=== PATIENT | female | born 1980 | race Caucasian/White ===

== ENCOUNTER 2017-02-07 08:09 | Emergency (ER) | payer SELFPAY ==
[2017-02-07] MEDS ORDERED: ASPIRIN 81 MG TABLET, CHEWABLE PO ONE (09:36)
[2017-02-07] MEDS ORDERED: NITROGLYCERIN 0.4 MG/TAB 25 TAB/BOTTLE SL PRN (09:36)
--- NOTE | 2017-02-07 09:46 | ER Document Report ---
ED General - General Mode of Arrival: Ambulatory Information source: Patient TRAVEL OUTSIDE OF THE [place] IN LAST 30 DAYS: No - General Chief Complaint: Facial Droop Stated Complaint: FACIAL NUMBNESS Time Seen by Provider: 02/07/17 08:50 Notes: Patient is a 36-year-old female that presents to the emergency department today with complaints of a right-sided facial droop and associated right eye pain. Patient states she has had these symptoms continuously for approximately 3 days. Patient states her right eye feels dry because she has not been blinking like she normally would. Patient denies any numbness/weakness in her upper or lower extremities. (MELYSSA OLIVAS) - Related Data Allergies/Adverse Reactions: No Known Allergies Allergy (Verified 02/07/17 08:10) Past Medical History - General Information source: Patient - Social History Smoking Status: Never Smoker Cigarette use (# per day): No Frequency of alcohol use: None Drug Abuse: None Lives with: Family Family History: Reviewed & Not Pertinent Neurological Medical History: Reports: Hx Migraine Traumatic Medical History: Reports: Hx Fractures Past Surgical History: Reports: Hx Hysterectomy - Immunizations Immunizations up to date: Yes - 06/17/12 Hx Diphtheria, Pertussis, Tetanus Vaccination: Yes Review of Systems - Review of Systems Constitutional: No symptoms reported EENT: See HPI, Other - right eye pain Cardiovascular: No symptoms reported Respiratory: No symptoms reported Gastrointestinal: No symptoms reported Genitourinary: No symptoms reported Female Genitourinary: No symptoms reported Musculoskeletal: No symptoms reported Skin: No symptoms reported Hematologic/Lymphatic: No symptoms reported Neurological/Psychological: See HPI, Other - right sided facial droop -: Yes All other systems reviewed and negative Physical Exam - Vital signs Vitals: Temp Pulse Resp BP Pulse Ox 98.0 F 106 H 14 144/89 H 97 02/07/17 08:16 02/07/17 08:16 02/07/17 08:16 02/07/17 08:16 02/07/17 08:16 - Notes Notes: Physical Exam: General: Alert, appears well. HEENT: Normocephalic. Atraumatic. PERRL. Extraocular movements intact. Oropharynx clear. Unable to raise right eyebrow, unable to wrinkle forehead on right, decreased sensation to right side of face. Neck: Supple. Non-tender. Respiratory: No respiratory distress. Clear and equal breath sounds bilaterally. Cardiovascular: Regular rate and rhythm. Abdominal: Normal Inspection. Non-tender. No distension. Normal Bowel Sounds. Back: Non-tender. No deformity or step off. Extremities: Moves all four extremities. Upper extremities: Normal inspection. Normal ROM. Lower extremities: Normal inspection. No edema. Normal ROM. Neurological: Cranial nerves II-XII intact with the exception of cranial nerve XII as described above. AAOx4. Normal speech. Psychological: Normal affect. Normal Mood. Skin: Warm. Dry. Normal color. (MELYSSA OLIVAS) Course - Re-evaluation Re-evalutation: 02/07/17 Patient presents with what appears to be Walker's palsy. She has had the symptoms for 48 hours. Patient will be given steroids and antivirals. She is to return if she has any worsening or concerning symptoms. Stable for discharge. Up with PMD as needed. Patient is to get eyepatch her pharmacy to wear to protect her eye. She is also to get lubricating eyedrops. Understands agrees with plan. (VANNESA HAWLEY) - Vital Signs Vital signs: Temp Pulse Resp BP Pulse Ox 98.0 F 99 18 124/73 98 02/07/17 12:20 02/07/17 12:20 02/07/17 12:20 02/07/17 12:20 02/07/17 12:20 Discharge - Discharge Clinical Impression: Walker's palsy Condition: Stable Disposition: HOME, SELF-CARE Instructions: Walker's Palsy ([facility]) Additional Instructions: Please get lubricating eyedrops and an eye patch from the pharmacy to protect your eye at night. Prescriptions: Acyclovir [Zovirax] 400 mg PO TID #42 capsule Prednisone [Deltasone 20 mg Tablet] 3 tab PO DAILY 4 Days tablet Scribe Attestation: 02/07/17 16:18 I personally performed the services described in the documentation, reviewed and edited the documentation which was dictated to the scribe in my presence, and it accurately records my words and actions. (VANNESA HAWLEY) Scribe Documentation - Scribe Written by Scrjonnye:: Farhan Nayak, 02/07/2017 1104 acting as scribe for :: Shy
[2017-02-07] MEDS ORDERED: PREDNISONE 20 MG TABLET PO ONE (09:47)
[2017-02-07] MEDS ORDERED: VALACYCLOVIR HCL 500 MG TABLET PO ONE (09:47)
[2017-02-07 12:23] VITALS: BP 124/73
== END 2017-02-07 12:25 | disposition home or self-care (01) ==
LOC: ER 08:09
DX: G51.0 Bell's palsy (principal); H57.11 Ocular pain, right eye
CPT/HCPCS: 99284; J7512

== ENCOUNTER 2017-03-03 18:27 | Emergency (ER) | payer SELFPAY ==
[2017-03-03] MEDS ORDERED: NORMAL SALINE 1000 ML 1,000 ML IV ONE (20:53)
[2017-03-03] MEDS ORDERED: ONDANSETRON HCL INJ/PF 4 MG/2 ML SDV IV ONE (20:54)
--- NOTE | 2017-03-03 20:55 | ER Document Report ---
ED General - General Chief Complaint: Dizziness Stated Complaint: DIZZINESS Time Seen by Provider: 03/03/17 20:38 Notes: Patient is a 36-year-old female without past medical history who presents with 2 days of nausea, vomiting and 1 day of lightheadedness. Patient states that each time she tries to change position from lying to sitting or sitting to standing position she becomes very lightheaded and feels like she is about to pass out. She notes that she is also been quite nauseated which has prompted her to have very minimal oral intake over the last several days. She has had one episode of nonbilious vomiting. Nothing seems to improve or worsen her nausea. She denies any abdominal pain, chest pain, shortness of breath, headache, neck pain, fever, or diarrhea. She has not seen a primary care doctor regarding today's concerns. Her only past surgical history is a total hysterectomy. TRAVEL OUTSIDE OF THE [place] IN LAST 30 DAYS: No - Related Data Allergies/Adverse Reactions: No Known Allergies Allergy (Verified 03/03/17 18:33) Past Medical History - General Information source: Patient - Social History Smoking Status: Never Smoker Frequency of alcohol use: None Drug Abuse: None Lives with: Spouse/Significant other Family History: Reviewed & Not Pertinent Neurological Medical History: Reports: Hx Migraine Renal/ Medical History: Denies: Hx Peritoneal Dialysis Traumatic Medical History: Reports: Hx Fractures Past Surgical History: Reports: Hx Hysterectomy - Immunizations Immunizations up to date: Yes - 06/17/12 Hx Diphtheria, Pertussis, Tetanus Vaccination: Yes Review of Systems - Review of Systems Notes: Constitutional: Negative for fever. HENT: Negative for sore throat. Eyes: Negative for visual changes. Cardiovascular: Negative for chest pain. Respiratory: Negative for shortness of breath. Gastrointestinal: Positive for nausea and vomiting Genitourinary: Negative for dysuria. Musculoskeletal: Negative for back pain. Skin: Negative for rash. Neurological: Negative for headaches, weakness or numbness. 10 point ROS negative except as marked above and in HPI. Physical Exam - Vital signs Vitals: Temp Pulse Resp BP Pulse Ox 98.6 F 121 H 20 114/81 99 03/03/17 18:44 03/03/17 18:44 03/03/17 18:44 03/03/17 18:44 03/03/17 18:44 Interpretation: Tachycardic Notes: PHYSICAL EXAMINATION: GENERAL: Well-appearing, well-nourished and in no acute distress. HEAD: Atraumatic, normocephalic. EYES: Pupils equal round and reactive to light, extraocular movements intact, sclera anicteric, conjunctiva are normal. ENT: nares patent, oropharynx clear without exudates. Dry mucous membranes. NECK: Normal range of motion, supple without lymphadenopathy LUNGS: Breath sounds clear to auscultation bilaterally and equal. No wheezes rales or rhonchi. HEART: Regular tachycardia without murmurs ABDOMEN: Soft, nontender, normoactive bowel sounds. No guarding, no rebound. No masses appreciated. EXTREMITIES: Normal range of motion, no pitting or edema. No cyanosis. NEUROLOGICAL: No focal neurological deficits. Moves all extremities spontaneously and on command. PSYCH: Normal mood, normal affect. SKIN: Warm, Dry, normal turgor, no rashes or lesions noted. Course - Re-evaluation Re-evalutation: 03/03/17 20:54 Patient presents with 3 days of lightheadedness that is positional in nature as well as nausea. The patient is noted during my examination to have her heart rate increased from 80-120 when she goes from a lying to sitting position. This immediately prompts her symptoms of lightheadedness suggesting orthostasis. Patient also appears clinically dehydrated. She notes that since she became nauseated she has had very poor p.o. intake. She is vomited only once. She denies any localized abdominal pain. Abdominal exam is benign without any focal areas of tenderness. She is status post a hysterectomy making and possible. She denies any dysuria, flank pain which would suggest a pyelonephritis or cystitis. She denies any chest pain or shortness of breath to suggest a cardiac or respiratory pathology. Patient denies any distinct vertigo, weakness or numbness. A full neurologic assessment is unremarkable. Will obtain basic laboratories, provide IV hydration and reassess 03/03/17 22:25 Labs are unremarkable. Patient has had improvement of her orthostasis. At this time based on exam and history I do not suspect any acute life-threatening pathology including cerebellar infarction, acute CA, occult infection, and I have encouraged the patient to follow closely with her primary care physician. At this time will discharge with return precautions and follow-up recommendations. Verbal discharge instructions given a the bedside and opportunity for questions given. Medication warnings reviewed. Patient is in agreement with this plan and has verbalized understanding of return precautions and the need for primary care follow-up in the next 24-72 hours. - Vital Signs Vital signs: Temp Pulse Resp BP Pulse Ox 98.7 F 98 14 112/69 100 03/03/17 23:29 03/03/17 23:49 03/03/17 23:29 03/03/17 23:29 03/03/17 23:29 - Laboratory Result Diagrams: 03/03/17 20:43 03/03/17 21:20 Discharge - Discharge Clinical Impression: Orthostatic hypotension, Dehydration Nausea and vomiting Qualifiers: Vomiting type: unspecified Vomiting Intractability: non-intractable Qualified Code(s): R11.2 - Nausea with vomiting, unspecified Condition: Stable Disposition: HOME, SELF-CARE Additional Instructions: Your symptoms are likely related to dehydration as your heart rate was very high and became even higher when you would sit up. Please be sure to drink plenty of fluids at home. Use the nausea medicine with which you were sent home as needed for nausea. Return if you develop focal weakness, numbness, confusion, fever, severe headache, or any other symptoms that are worrisome to you.
[2017-03-03 20:57] LABS: ABSOLUTE EOSINOPHILS # (AUTO) 0.1 10^3/uL (0.0-0.6); ABSOLUTE LYMPHOCYTES (AUTO) 1.5 10^3/uL (0.5-4.7); ABSOLUTE MONOCYTES (AUTO) 0.6 10^3/uL (0.1-1.4); ABSOLUTE NEUT (AUTO) 3.2 10^3/uL (1.7-8.2); BASOPHILS % (AUTO) 0.8 % (0-2); EOSINOPHILS % (AUTO) 2.1 % (0-6); HEMATOCRIT 41.7 % (36.0-47.0); LYMPHOCYTES % (AUTO) 27.7 % (13-45); MEAN CORPUSCULAR HEMOGLOBIN 29.4 pg (27.0-33.4); MEAN CORPUSCULAR HGB CONC 33.6 g/dL (32.0-36.0); MEAN CORPUSCULAR VOLUME 88 fl (80-97); MONOCYTES % (AUTO) 11.1 % (3-13); PLATELET COUNT 234 10^3/uL (150-450); RED BLOOD COUNT 4.76 10^6/uL (3.72-5.28); RED CELL DISTRIBUTION WIDTH 13.2 % (11.5-14.0); SEGMENTED NEUTROPHILS % (AUTO) 58.3 % (42-78); TOTAL CELLS COUNTED % (AUTO) 100 %; WHITE BLOOD COUNT 5.4 10^3/uL (4.0-10.5)
[2017-03-03 22:08] LABS: ANION GAP 12 (5-19); BLOOD UREA NITROGEN 14 mg/dL (7-20); CALCIUM 9.7 mg/dL (8.4-10.2); CARBON DIOXIDE 25 mmol/L (22-30); CHLORIDE 104 mmol/L (98-107); GLUCOSE 98 mg/dL (75-110); POTASSIUM 4.3 mmol/L (3.6-5.0); SODIUM 140.7 mmol/L (137-145)
[2017-03-03] MEDS ORDERED: DIPHENHYDRAMINE HCL 50 MG/ML VIAL IV ONE (22:25)
[2017-03-03] MEDS ORDERED: PROCHLORPERAZINE EDISYLATE INJ 10 MG/2 ML VIAL IV ONE (22:25)
[2017-03-03] MEDS ORDERED: ONDANSETRON ODT 4 MG TAB (6 TAB/ER DISP) PO PRN (22:28)
[2017-03-03 23:48] VITALS: BP 112/69
== END 2017-03-03 23:53 | disposition home or self-care (01) ==
LOC: ER 18:27
DX: I95.1 Orthostatic hypotension (principal); E86.0 Dehydration; R11.2 Nausea with vomiting, unspecified; R42 Dizziness and giddiness; Z90.710 Acquired absence of both cervix and uterus
CPT/HCPCS: 99284; 96361; 96374; 96375; 36415; 84703; 85025; 80048; J1200; J0780; J2405; J7030

== ENCOUNTER 2017-03-16 12:02 | Emergency (ER) | payer SELFPAY ==
--- NOTE | 2017-03-16 12:51 | ER Document Report ---
ED General - General Chief Complaint: Facial Droop Stated Complaint: LEFT SIDE FACIAL NUMBNESS Time Seen by Provider: 03/16/17 12:17 Mode of Arrival: Ambulatory Information source: Patient Notes: 36-year-old female who had right facial paralysis approximately one half months ago presents now with left facial paralysis. Patient notes symptoms started last night, is unable to move her face. Patient notes her right-sided paralysis resolved after steroids and anti virals. Patient did not follow-up with neurology TRAVEL OUTSIDE OF THE [place] IN LAST 30 DAYS: No - HPI Onset: Yesterday Onset/Duration: Sudden Quality of pain: No pain Severity: Mild Pain Level: Denies Associated symptoms: Other Exacerbated by: Movement Relieved by: Denies Similar symptoms previously: Yes Recently seen / treated by doctor: Yes - Related Data Allergies/Adverse Reactions: No Known Allergies Allergy (Verified 03/16/17 12:04) Past Medical History - Social History Smoking Status: Never Smoker Cigarette use (# per day): No Chew tobacco use (# tins/day): No Smoking Education Provided: No Frequency of alcohol use: None Drug Abuse: None Family History: Reviewed & Not Pertinent Patient has suicidal ideation: No Patient has homicidal ideation: No Neurological Medical History: Reports: Hx Migraine Renal/ Medical History: Denies: Hx Peritoneal Dialysis Traumatic Medical History: Reports: Hx Fractures Past Surgical History: Reports: Hx Hysterectomy - Immunizations Immunizations up to date: Yes - 06/17/12 Hx Diphtheria, Pertussis, Tetanus Vaccination: Yes Review of Systems - Review of Systems Notes: REVIEW OF SYSTEMS: CONSTITUTIONAL : Denies fever, chills, or sweats. Denies recent illness. EENT: Denies eye, ear, throat, or mouth pain or symptoms. Denies nasal or sinus congestion or discharge. Denies throat, tongue, or mouth swelling or difficulty swallowing. CARDIOVASCULAR: Denies chest pain. Denies palpitations or racing or irregular heart beat. Denies ankle edema. RESPIRATORY: Denies cough, cold, or chest congestion. Denies shortness of breath, difficulty breathing, or wheezing. GASTROINTESTINAL: Denies abdominal pain or distention. Denies nausea, vomiting , or diarrhea. Denies blood in vomitus, stools, or per rectum. Denies black, tarry stools. Denies constipation. GENITOURINARY: Denies difficulty urinating, painful urination, burning, frequency, blood in urine, or discharge. FEMALE GENITOURINARY: Denies vaginal bleeding, heavy or abnormal periods, irregular periods. Denies vaginal discharge or odor. MUSCULOSKELETAL: Denies back or neck pain or stiffness. Denies joint pain or swelling. SKIN: Denies rash, lesions or sores. HEMATOLOGIC : Denies easy bruising or bleeding. LYMPHATIC: Denies swollen, enlarged glands. NEUROLOGICAL: Massive left facial paralysis PSYCHIATRIC: Denies anxiety or stress. Denies depression, suicidal ideation, or homicidal ideation. ALL OTHER SYSTEMS REVIEWED AND NEGATIVE. PHYSICAL EXAMINATION: GENERAL: Well-appearing, well-nourished and in no acute distress. HEAD: Atraumatic, normocephalic. EYES: Pupils equal round and reactive to light, extraocular movements intact, conjunctiva are normal. ENT: Nares patent, oropharynx clear without exudates. Moist mucous membranes. NECK: Normal range of motion, supple without lymphadenopathy LUNGS: Breath sounds clear to auscultation bilaterally and equal. No wheezes rales or rhonchi. HEART: Regular rate and rhythm without murmurs ABDOMEN: Soft, nontender, nondistended abdomen. No guarding, no rebound. No masses appreciated. Female : deferred Musculoskeletal: Normal range of motion, no pitting or edema. No cyanosis. NEUROLOGICAL: Patient is unable to move her forehead on the left unable to close her eye lid completely and is unable to smile PSYCH: Normal mood, normal affect. SKIN: Warm, Dry, normal turgor, no rashes or lesions noted. Dictation was performed using [employer] voice recognition software Physical Exam - Vital signs Vitals: Temp Pulse Resp BP Pulse Ox 99.2 F 84 18 132/82 H 99 03/16/17 12:08 03/16/17 12:08 03/16/17 12:08 03/16/17 12:08 03/16/17 12:08 Course - Re-evaluation Re-evalutation: 03/16/17 12:50 Patient denies any other neurological deficits however it is strange for her to have a right facial paralysis and now left-sided facial paralysis, therefore a CTA has been ordered, patient must be seen by neurology,. Lyme titer ordered 03/16/17 15:06 CTA head was negative, patient overall looks well, I will discharge the patient home as Walker's palsy again however she promises me that she will see a neurologist, After performing a Medical Screening Examination, I estimate there is LOW risk for ACUTE GLAUCOMA, TEMPORAL ARTERITIS, MENINGITIS, INCRANIAL HEMORRHAGE, or ISCHEMIC STROKE thus I consider the discharge disposition reasonable. I have reevaluated this patient multiple times and no significant life threatening changes are noted. The patient and I have discussed the diagnosis and risks, and we agree with discharging home with close follow-up with the understanding that symptoms and presentations can change. We also discussed returning to the Emergency Department immediately if new or worsening symptoms occur. We have discussed the symptoms which are most concerning (e.g., changing or worsening symptoms, new numbness or weakness, vomiting, fever) that necessitate immediate return. - Vital Signs Vital signs: Temp Pulse Resp BP Pulse Ox 99.2 F 84 18 132/82 H 99 03/16/17 12:08 03/16/17 12:08 03/16/17 12:08 03/16/17 12:08 03/16/17 12:08 - Diagnostic Test Radiology reviewed: Image reviewed, Reports reviewed Discharge - Discharge Clinical Impression: Walker's palsy Condition: Stable Disposition: HOME, SELF-CARE Instructions: Walker's Palsy ([facility]) Prescriptions: Acyclovir [Zovirax] 400 mg PO 5XD 10 Days tablet Prednisone [Deltasone 20 mg Tablet] 3 tab PO DAILY 7 Days tablet Referrals: GALE ORDONEZ MD [ACTIVE STAFF] - Follow up tomorrow
--- NOTE | 2017-03-16 15:03 | RADIOLOGY REPORT (SQ) ---
EXAM DESCRIPTION: CTA HEAD COMPLETED DATE/TIME: 03/16/2017 2:40 pm REASON FOR STUDY: bells palsy bilateral? COMPARISON: None. TECHNIQUE: Post IV contrast scanning, thin section axial imaging through the brain to evaluate the a rterial structures. Source and MIP images are saved and reviewed on PACS. Advanced 3D imaging as volume-rendering, MIPs, SSD performed? yes All CT scanners at this facility use dose modulation, iterative reconstruction, and/or weight based d osing when appropriate to reduce radiation dose to as low as reasonably achievable (ALARA). [facility]: Dose Right [facility]: CareDose [facility]: Dose Right [facility]: Teradose 4D [facility]: Pipefish CONTRAST TYPE AND DOSE: contrast/concentration: Isovue 370.00 mg/ml; Total Contrast Delivered: 70.0 ml; Total Saline Delivered: 75.0 ml RENAL FUNCTION: Creatinine 0.8 LIMITATIONS: None. FINDINGS: [facility]: The anterior, middle, posterior cerebral arteries are all patent. No ev idence of aneurysm or focal stenosis. POSTERIOR CIRCULATION: The distal vertebral arteries are patent as is the basilar artery. No aneurysm . BRAIN: No gross enhancing lesions as visualized. The superior cerebral hemispheres are not included in the field of view. BONES: Intact as visualized. SINUSES: No fluid or mucosal thickening. OTHER: No other significant finding. IMPRESSION: NO CTA EVIDENCE OF STENOSIS OR ANEURYSM OF THE [facility]. TECHNICAL DOCUMENTATION: JOB ID: [id number] Quality ID # [id number]: Final reports with documentation of one or more dose reduction techniques (e.g., Au tomated exposure control, adjustment of the mA and/or kV according to patient size, use of iterative reconstruction technique) 2010 [employer]- All Rights Reserved
[2017-03-16 17:11] VITALS: BP 117/72
== END 2017-03-16 17:11 | disposition home or self-care (01) ==
LOC: ER 12:02
DX: G51.0 Bell's palsy (principal); R20.0 Anesthesia of skin; Z90.710 Acquired absence of both cervix and uterus
CPT/HCPCS: 36415; 70496; 86617; 86618; 99284

== ENCOUNTER 2019-03-14 18:33 | Emergency (ER) | payer OTHER ==
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
[2019-03-14 20:57] VITALS: BP 126/83
== END 2019-03-14 21:08 | disposition home or self-care (01) ==
LOC: ER 18:33
DX: R10.32 Left lower quadrant pain (principal); M25.561 Pain in right knee; V43.52XA Car driver injured in collision with other type car in traffic accident, initial encounter; K76.9 Liver disease, unspecified; D73.89 Other diseases of spleen
CPT/HCPCS: 74177; 99283

== ENCOUNTER → 2019-04-12 | Outpatient (CLI) | payer MEDICAID ==
[2019-04-12 09:51] LABS: ABSOLUTE EOSINOPHILS # (AUTO) 0.2 10^3/uL (0.0-0.6); ABSOLUTE LYMPHOCYTES (AUTO) 1.2 10^3/uL (0.5-4.7); ABSOLUTE MONOCYTES (AUTO) 0.7 10^3/uL (0.1-1.4); BASOPHILS % (AUTO) 0.7 % (0-2); EOSINOPHILS % (AUTO) 3.2 % (0-6); HEMATOCRIT 41.1 % (36.0-47.0); HEMOGLOBIN 13.8 g/dL (12.0-15.5); LYMPHOCYTES % (AUTO) 23.9 % (13-45); MEAN CORPUSCULAR HEMOGLOBIN 30.2 pg (27.0-33.4); MEAN CORPUSCULAR HGB CONC 33.7 g/dL (32.0-36.0); MEAN CORPUSCULAR VOLUME 90 fl (80-97); MONOCYTES % (AUTO) 13.5 % (3-13); PLATELET COUNT 215 10^3/uL (150-450); RED BLOOD COUNT 4.58 10^6/uL (3.72-5.28); RED CELL DISTRIBUTION WIDTH 12.6 % (11.5-14.0); SEGMENTED NEUTROPHILS % (AUTO) 58.7 % (42-78); TOTAL CELLS COUNTED % (AUTO) 100 %; WHITE BLOOD COUNT 5.2 10^3/uL (4.0-10.5)
[2019-04-12 10:23] LABS: ALBUMIN 4.3 g/dL (3.5-5.0); ALKALINE PHOSPHATASE 80 U/L (38-126); ANION GAP 11 (5-19); ASPARTATE AMINO TRANSFERASE 33 U/L (14-36); BILIRUBIN,DIRECT 0.3 mg/dL (0.0-0.4); BILIRUBIN,TOTAL 0.7 mg/dL (0.2-1.3); BLOOD UREA NITROGEN 16 mg/dL (7-20); CALCIUM 9.2 mg/dL (8.4-10.2); CARBON DIOXIDE 27 mmol/L (22-30); CHLORIDE 102 mmol/L (98-107); CHOLESTEROL 181.38 mg/dL (0-200); GLUCOSE 115 mg/dL (75-110); POTASSIUM 4.4 mmol/L (3.6-5.0); TOTAL PROTEIN 8.1 g/dL (6.3-8.2); TRIGLYCERIDES 179 mg/dL (<150)
[2019-04-12 10:34] LABS: DIRECT LDL 127 mg/dL (<100)
[2019-04-12 11:15] LABS: VLDL CHOLESTEROL 35.8 mg/dL (10-31)
== END ==
LOC: OD 08:55
PROVIDERS: ATTEND Internal Medicine
DX: R10.9 Unspecified abdominal pain (principal); R53.83 Other fatigue; R73.9 Hyperglycemia, unspecified; E66.9 Obesity, unspecified
CPT/HCPCS: 36415; 80053; 80061; 83036; 84443; 85025

== ENCOUNTER → 2019-04-17 | Outpatient (CLI) | payer MEDICAID ==
--- NOTE | 2019-04-17 13:35 | RADIOLOGY REPORT (SQ) ---
EXAM DESCRIPTION: MRI ABDOMEN COMBO COMPLETED DATE/TIME: 04/17/2019 12:04 pm REASON FOR STUDY: MULTIPLE LIVER/SPLEEN LESIONS (K76.9) K76.9 LIVER DISEASE, UNSPECIFIED COMPARISON: CT dated 03/14/2019 TECHNIQUE: Multiplanar multisequence imaging performed without and with contrast including sagittal, axial and coronal T2, axial T1, axial gradient fat sat T1, axial, sagittal and coronal fat sat T1 po st contrast. CONTRAST TYPE AND DOSE: 20 mL Dotarem. RENAL FUNCTION: Not indicated. ACR Type II contrast agent associated with few, if any, unconfounded cases of NSF LIMITATIONS: None. FINDINGS: LIVER: Small hepatic lesions demonstrated on prior CT are less apparent on T1 weighted MR images. There well demonstrated on T2 weighted sequences demonstrate high-signal intensity. No appa rent change on inphase and out of phase sequences. The lesions are not apparent all following contra st administration. Findings most likely represent small hemangiomas. SPLEEN: Splenic lesions are well demonstrated on T1 and T2 weighted sequences. These demonstrate dim inished signal intensity on T1 weighted sequences high signal intensity on T2. With contrast adminis tration there is gradual feel 1. This is most consistent with hemangiomas. PANCREAS: No masses. No adjacent inflammation or peripancreatic fluid collections. Pancreatic duct no t dilated. GALLBLADDER: No masses. No stones. No gallbladder wall thickening or pericholecystic fluid. ADRENAL GLANDS: No significant masses or asymmetry. RIGHT KIDNEY AND URETER: No masses. No hydronephrosis. LEFT KIDNEY AND URETER: No masses. No hydronephrosis. AORTA AND VESSELS: No aneurysm. No dissection. Renal arteries, SMA, celiac without stenosis. RETROPERITONEUM: No retroperitoneal adenopathy, hemorrhage or masses. BOWEL: No visualized masses. No inflammation. No significant dilatation. ABDOMINAL WALL AND PERITONEUM: No hernias. No free fluid. BONES: No acute or significant findings. OTHER: No other significant finding. IMPRESSION: 1. Indeterminate hepatic lesions most likely small hemangiomas. Recommend follow-up CT abdomen without and with contrast at 3 months to ensure stability. 2. Signal characteristics and enhancement pattern of the splenic lesions are most consistent with sm all hemangiomas. TECHNICAL DOCUMENTATION: JOB ID: [id number] 2010 [email or web address]- All Rights Reserved Reading location - IP/workstation name: [email or web address]
== END ==
LOC: RAD 10:28
PROVIDERS: ATTEND Internal Medicine
DX: K76.9 Liver disease, unspecified (principal)
CPT/HCPCS: 74183; A9576

== ENCOUNTER → 2019-08-14 | Outpatient (CLI) | payer MEDICAID ==
--- NOTE | 2019-08-14 14:17 | RADIOLOGY REPORT (SQ) ---
EXAM DESCRIPTION: CT ABDOMEN IV CONTRAST ONLY IMAGES COMPLETED DATE/TIME: 08/14/2019 10:08 am REASON FOR STUDY: LIVER DISEASE (K76.9) K76.9 LIVER DISEASE, UNSPECIFIED COMPARISON: MRI abdomen dated 04/17/2019. CT abdomen pelvis examination dated 03/14/2019. TECHNIQUE: CT scan of the abdomen performed with intravenous and without oral contrast using helical scanning technique with dynamic intravenous contrast injection. Images reviewed with lung, soft tiss ue, and bone windows. Reconstructed coronal and sagittal MPR images reviewed. Delayed images for eval uation of the urinary system also acquired and evaluated. All images stored on PACS. All CT scanners at this facility use dose modulation, iterative reconstruc tion, and/or weight based dosing when appropriate to reduce radiation dose to as low as reasonably ac hievable (ALARA). [facility]: Dose Right [facility]: CareDose [facility]: Dose Right [facility]: Teradose 4D [facility]: [employer] CONTRAST TYPE AND DOSE: 100 ml Omnipaque 350 RENAL FUNCTION: None required. The patient is less than 50 years old. RADIATION DOSE: CT Rad equipment meets quality standard of care and radiation dose reduction techniq ues were employed. CTDIvol: 27.2 - 27.2 mGy. DLP: 2074 mGy-cm. . LIMITATIONS: None. FINDINGS: LOWER CHEST: No significant interval changes. LIVER: Multiple, innumerable stable appearing too small to characterize hypoattenuated hepatic lesio ns. Normal size. No masses. No dilated ducts. The hepatic and portal veins are patent. SPLEEN: Stable appearance to the multiple innumerable hypoattenuated slightly enhancing splenic lesi ons. Considerations for these findings include hemangiomas. PANCREAS: No masses. No significant calcifications. No adjacent inflammation or peripancreatic fluid collections. Pancreatic duct not dilated. GALLBLADDER: No identified stones by CT criteria. No inflammatory changes to suggest cholecystitis. ADRENAL GLANDS: Stable appearing 1.0 cm left adrenal nodule No significant masses or asymmetry. RIGHT KIDNEY AND URETER: No solid masses. No significant calcifications. No hydronephrosis or hyd roureter. LEFT KIDNEY AND URETER: No solid masses. No significant calcifications. No hydronephrosis or hydr oureter. AORTA AND VESSELS: Stable mildly prominent retroperitoneal common gastrohepatic ligament, portal cav al and pauline hepatis lymph nodes. No aneurysm. No dissection. Renal arteries, SMA, celiac without st enosis. RETROPERITONEUM: No retroperitoneal adenopathy, hemorrhage or masses. BOWEL AND PERITONEAL CAVITY: Stable areas of fibrofatty expansion involving the root of the small gabriela wel mesenteric. Considerations for this finding includes mesenteric lipodystrophy. No free fluid. APPENDIX: Normal. ABDOMINAL WALL: No masses. No hernias. BONES: The osseous structures are stable in appearance. OTHER: Small hiatal hernia. IMPRESSION: 1. No significant interval change in the appearance of the multiple, innumerable stable appearing too small to characterize hypoattenuated hepatic lesions since the CT examination dated and the MRI abdomen examination dated 04/17/2019. 2. Stable multiple slightly enhancing hypoattenuated splenic lesions. MRI abdomen examination demon strated findings consistent with hemangiomas. 3. Stable mildly prominent retroperitoneal, gastrohepatic ligament, portal caval and pauline hepatis l ymph nodes. Continued follow-up examination in 6 months to document for stability. 4. Additional stable findings as above. TECHNICAL DOCUMENTATION: JOB ID: [id number] Quality ID # [id number]: Final reports with documentation of one or more dose reduction techniques (e.g., Au tomated exposure control, adjustment of the mA and/or kV according to patient size, use of iterative reconstruction technique) 2010 [employer]- All Rights Reserved Reading location - IP/workstation name: [email or web address]
== END ==
LOC: RAD 09:31
PROVIDERS: ATTEND Internal Medicine
DX: K76.9 Liver disease, unspecified (principal)
CPT/HCPCS: 74160